=== PATIENT | female | born 1955 | race African-American/Black ===

== ENCOUNTER 2017-02-13 14:11 | Emergency (ER) | payer OTHER ==
[~2017-02-13] VITALS: Ht 165.1 cm; Wt 77.0 kg
[2017-02-14] MEDS ORDERED: KETOROLAC 30MG/ML VIAL IM ONE (03:30)
[2017-02-14] MEDS ORDERED: CYCLOBENZAPRINE 10MG TABLET PO ONE (03:30)
[2017-02-14] MEDS ORDERED: DIPHENHYDRAMINE 25MG CAPSULE PO ONE (05:00)
[2017-02-14 06:25] VITALS: BP 133/75
== END 2017-02-14 06:30 | disposition home or self-care (01) ==
LOC: ER 14:28
DX: S20.212A Contusion of left front wall of thorax, initial encounter (principal); I10 Essential (primary) hypertension; Z88.6 Allergy status to analgesic agent; W01.0XXA Fall on same level from slipping, tripping and stumbling without subsequent striking against object, initial encounter; Y93.89 Activity, other specified; Y92.89 Other specified places as the place of occurrence of the external cause; Y99.8 Other external cause status
CPT/HCPCS: 71111; 96372; 99284; J1885; Q0163

== ENCOUNTER 2017-10-20 14:19 | Emergency (ER) | payer OTHER ==
[~2017-10-20] VITALS: Ht 157.5 cm; Wt 56.0 kg
[2017-10-20] MEDS ORDERED: TRAMADOL 50MG TABLET PO ONE (17:00)
[2017-10-20 18:55] VITALS: BP 135/81
== END 2017-10-20 19:00 | disposition home or self-care (01) ==
LOC: ER 15:37
DX: M54.5 Low back pain (principal)
CPT/HCPCS: 72100; 99284

== ENCOUNTER 2018-07-03 10:42 | Emergency (ER) | payer OTHER ==
[~2018-07-03] VITALS: Ht 157.5 cm; Wt 54.0 kg
[2018-07-03] MEDS ORDERED: HYDROCODONE/ACETAMINOPHEN 5/325MG TABLET PO ONE (11:15)
[2018-07-03 11:33] VITALS: BP 143/89
== END 2018-07-03 11:21 | disposition home or self-care (01) ==
LOC: ER 10:42
DX: M54.40 Lumbago with sciatica, unspecified side (principal); G89.29 Other chronic pain; I10 Essential (primary) hypertension; F17.200 Nicotine dependence, unspecified, uncomplicated; Z90.710 Acquired absence of both cervix and uterus; Z98.890 Other specified postprocedural states; Z88.6 Allergy status to analgesic agent
CPT/HCPCS: 99283; 99406

== ENCOUNTER 2018-10-03 13:18 | Emergency (ER) | payer OTHER ==
[~2018-10-03] VITALS: Ht 157.5 cm; Wt 54.1 kg
[2018-10-03 15:27] VITALS: BP 122/90
[2018-10-03] MEDS ORDERED: TRAMADOL 50MG TABLET PO ONE (15:30)
== END 2018-10-03 15:30 | disposition home or self-care (01) ==
LOC: ER 13:18
DX: G44.209 Tension-type headache, unspecified, not intractable (principal); M25.562 Pain in left knee; I10 Essential (primary) hypertension; Z63.4 Disappearance and death of family member
CPT/HCPCS: 99283

== ENCOUNTER 2018-10-23 13:47 | Emergency (ER) | payer OTHER ==
[~2018-10-23] VITALS: Ht 157.5 cm; Wt 56.0 kg
[2018-10-23] MEDS ORDERED: GABAPENTIN 300MG CAPSULE PO ONE ×2 (15:30→16:00)
[2018-10-23] MEDS ORDERED: GABAPENTIN 300MG CAPSULE PO NR (16:00)
[2018-10-23 16:14] VITALS: BP 125/80
== END 2018-10-23 16:15 | disposition home or self-care (01) ==
LOC: ER 13:47
DX: M79.601 Pain in right arm (principal); M54.2 Cervicalgia; I10 Essential (primary) hypertension; Z98.890 Other specified postprocedural states; Z90.710 Acquired absence of both cervix and uterus
CPT/HCPCS: 99282; 99283

== ENCOUNTER 2022-10-18 08:01 | Emergency (ER) | payer MEDICAID, OTHER ==
[~2022-10-18] VITALS: Ht 162.6 cm; Wt 45.0 kg
[2022-10-18] MEDS ORDERED: IPRATROPIUM BROMIDE (0.02%) 0.5MG/2.5ML NEB HHN ONE (10:00)
[2022-10-18] MEDS ORDERED: ALBUTEROL (0.5%) 2.5MG/0.5ML NEB HHN ONE (10:00)
[2022-10-18] MEDS ORDERED: DEXAMETHASONE 4MG TABLET PO ONE (10:00)
[2022-10-18 11:00] VITALS: PULSE 55; RESP 20; O2SAT 99
[2022-10-18] MEDS ORDERED: IPRATROPIUM BROMIDE (0.02%) 0.5MG/2.5ML NEB ONE (11:58)
[2022-10-18] MEDS ORDERED: ALBUTEROL (0.083%) 2.5MG/3ML NEB ONE (11:58)
[2022-10-18] MEDS ORDERED: ALBU6.7H15 INH (12:57)
[2022-10-18] MEDS ORDERED: ACETAMINOPHEN 325MG TABLET PO ONE (13:00)
[2022-10-18 14:23] VITALS: BP 141/90; PULSE 67; RESP 20; TEMP 98.1
== END 2022-10-18 14:24 | disposition home or self-care (01) ==
LOC: ER 08:01
DX: B34.9 Viral infection, unspecified (principal); J40 Bronchitis, not specified as acute or chronic; K21.9 Gastro-esophageal reflux disease without esophagitis; I10 Essential (primary) hypertension; Z90.710 Acquired absence of both cervix and uterus; Z88.6 Allergy status to analgesic agent
CPT/HCPCS: 94640; 99283; J8540; Z7610 ×3

== ENCOUNTER 2023-03-13 07:29 | Emergency (ER) | payer MEDICAID, OTHER ==
[~2023-03-13] VITALS: Ht 167.6 cm; Wt 65.0 kg
[~2023-03-13 07:29] MED LIST: ALBU6.7H15 INH
[2023-03-13 07:32] VITALS: O2SAT 95
[2023-03-13] MEDS ORDERED: OXYCODONE HCL/ACETAMINOPHEN 5/325MG TABLET PO ONE (07:45)
[2023-03-13] MEDS ORDERED: PREDNISONE 20MG TABLET PO ONE (07:45)
[2023-03-13] MEDS ORDERED: P50 MT (07:55)
[2023-03-13] MEDS ORDERED: OXYC-100 MT (07:55)
[2023-03-13 09:42] VITALS: BP 136/78; PULSE 90; RESP 16; TEMP 99.1
== END 2023-03-13 09:43 | disposition home or self-care (01) ==
LOC: ER 07:47
DX: M54.40 Lumbago with sciatica, unspecified side (principal); I10 Essential (primary) hypertension; Z98.890 Other specified postprocedural states; Z88.6 Allergy status to analgesic agent
CPT/HCPCS: 99283; J7512

== ENCOUNTER 2023-09-11 12:51 | Emergency (ER) | payer MEDICAID, OTHER ==
[~2023-09-11] VITALS: Ht 157.5 cm; Wt 48.1 kg
[~2023-09-11 12:51] MED LIST changes: +OXYC-100 MT; +P50 MT
[2023-09-11 12:55] VITALS: O2SAT 96
[2023-09-11] MEDS ORDERED: AMOX1TAB16 MT (14:09)
[2023-09-11] MEDS ORDERED: TUSSL MT (14:09)
[2023-09-11] MEDS ORDERED: TOPUD MT (14:09)
[2023-09-11] MEDS ORDERED: DOXY100T2 MT (14:09)
[2023-09-11 14:29] VITALS: BP 158/91; PULSE 75; RESP 18; TEMP 98.8
== END 2023-09-11 14:38 | disposition home or self-care (01) ==
LOC: ER 12:51
DX: J18.9 Pneumonia, unspecified organism (principal); Z20.822 Contact with and (suspected) exposure to COVID-19; Z88.6 Allergy status to analgesic agent; Z79.899 Other long term (current) drug therapy; Z98.890 Other specified postprocedural states; Z90.710 Acquired absence of both cervix and uterus
CPT/HCPCS: 71045; 87426; 87804; 99284

== ENCOUNTER 2023-11-19 14:46 | Emergency (ER) | payer OTHER ==
[~2023-11-19] VITALS: Ht 160 cm; Wt 75.0 kg
[~2023-11-19 14:46] MED LIST changes: +AMOX1TAB16 MT; +DOXY100T2 MT; +TOPUD MT; +TUSSL MT
[2023-11-19 15:02] VITALS: O2SAT 98
[2023-11-19] MEDS ORDERED: ACET-2708 MT (17:48)
[2023-11-19 17:55] VITALS: BP 152/89; PULSE 68; RESP 19; TEMP 36.94740; O2SAT 97
== END 2023-11-19 17:58 | disposition home or self-care (01) ==
LOC: ER 14:46
DX: S09.8XXA Other specified injuries of head, initial encounter (principal); S20.219A Contusion of unspecified front wall of thorax, initial encounter; I10 Essential (primary) hypertension; Z90.710 Acquired absence of both cervix and uterus; Z88.6 Allergy status to analgesic agent; Z98.890 Other specified postprocedural states; Z79.899 Other long term (current) drug therapy; X58.XXXA Exposure to other specified factors, initial encounter; Y93.89 Activity, other specified; Y92.89 Other specified places as the place of occurrence of the external cause; Y99.8 Other external cause status
CPT/HCPCS: 71045; 93005; 99284

== ENCOUNTER 2024-06-01 08:34 | Emergency (ER) | payer OTHER ==
[~2024-06-01] VITALS: Ht 158.8 cm; Wt 68.0 kg
[~2024-06-01 08:34] MED LIST changes: +ACET-2708 MT
[2024-06-01 08:41] VITALS: BP 148/98; PULSE 73; RESP 18; TEMP 37.1; O2SAT 99
[2024-06-01 08:44] VITALS: O2SAT 98
[2024-06-01] MEDS ORDERED: AMOX1TAB16 MT (08:55)
[2024-06-01] MEDS ORDERED: HYDR-4001 MT (08:55)
[2024-06-01] MEDS ORDERED: MECL-299 MT (09:04)
== END 2024-06-01 09:05 | disposition home or self-care (01) ==
LOC: ER 08:34
DX: K04.7 Periapical abscess without sinus (principal); R42 Dizziness and giddiness; F17.290 Nicotine dependence, other tobacco product, uncomplicated; I10 Essential (primary) hypertension; Z88.6 Allergy status to analgesic agent; Z90.710 Acquired absence of both cervix and uterus; Z79.899 Other long term (current) drug therapy
CPT/HCPCS: 99283; 99406